=== PATIENT | female | born 1950 | race Caucasian/White ===

== ENCOUNTER → 2016-07-27 | Outpatient (CLI) | payer BC ==
[~2016-07-27] MED LIST: ASCA500 PO; ESZO1TAB18 PO; GLUCTAB7 PO; IBUP-1105 PO; IBUP600T44 PO; MAGNTAB4 PO; MULT-506 PO; OMEG10007 PO; OXYC-57 PO; VITACAP26 PO
[2016-07-27 10:52] LABS: URINE APPEARANCE CLEAR (CLEAR); URINE BILIRUBIN NEG (NEG); URINE COLOR YELLOW; URINE EPITHELIAL CELL AUTO 0-5 /lpf (0-5); URINE NITRITE NEG (NEG); URINE PH 7.5 (4.5-7.5); URINE SPECIFIC GRAVITY 1.012 (1.000-1.030); UROBILINOGEN NEG (NEG)
[2016-07-27 10:54] LABS: BASO % 0.7 %; BASO ABS # 0.03 K/uL (0-0.2); COMPLETE YES; EOS % 1.4 %; HEMATOCRIT 39.6 % (37-47); LYMPH % 38.7 %; LYMPH ABS # 1.62 K/uL (1.2-3.4); MEAN CORPUSCULAR HEMOGLOBIN 30.6 pg (25-34); MEAN CORPUSCULAR HGB CONC 34.3 g/dl (32-36); MEAN PLATELET VOLUME 11.5 fL (7.4-10.4); MONO % 12.4 %; NEUT % 46.8 %; PLATELET COUNT 180 K/uL (130-400); RED BLOOD COUNT 4.45 M/uL (4.2-5.4); WHITE BLOOD COUNT 4.19 K/uL (4.8-10.8)
[2016-07-27 10:58] LABS: MANUAL MICROSCOPIC REQUIRED? NO; REVIEW REQ? NO
[2016-07-27 11:19] LABS: CHOLESTEROL/HDL RATIO 1.6; THYROID STIMULATING HORMONE 2.28 uIu/ml (0.300-4.500)
== END | disposition home or self-care (01) ==
LOC: C.LAB1850 09:29
PROVIDERS: ATTEND Internal Medicine
DX: J45.909 Unspecified asthma, uncomplicated (principal)

== ENCOUNTER → 2016-09-06 | Outpatient (CLI) | payer BC ==
--- NOTE | 2016-09-06 15:15 | DIAGNOSTIC IMAGING REPORT ---
LUMBAR SPINE 5 VIEWS HISTORY: Pain LOW BACK PAIN COMPARISON: None. FINDINGS: There is no fracture. No subluxation. Moderate to significant degenerative disc change. This is most prominent at L5-S1 and L1-L2. No evidence for compression deformity. Mild scoliosis. IMPRESSION: Mild scoliosis. Degenerative disc change most prominent at L1-L2 and L5-S1 Electronically signed by: Zhen Parks M.D. 09/06/2016 3:13 PM Dictated Date/Time: 09/06/2016 3:12 PM
== END | disposition home or self-care (01) ==
LOC: C.RDSM 15:05
PROVIDERS: ATTEND Physician Assistant
DX: R52 Pain, unspecified (principal); M51.36 Other intervertebral disc degeneration, lumbar region; M51.37 Other intervertebral disc degeneration, lumbosacral region

== ENCOUNTER → 2016-10-03 | Outpatient (CLI) | payer BC ==
--- NOTE | 2016-10-03 13:32 | DIAGNOSTIC IMAGING REPORT ---
MRI LUMBAR SPINE W/O CONTRAST CLINICAL HISTORY: LOW BACK PAIN RIGHT LEG RADICULOPATHY. TECHNIQUE: Sagittal and axial T1, T2 and STIR images were obtained. COMPARISON STUDY: 09/06/2016 OBSERVATIONS: The vertebral bodies and posterior elements appear intact. There is no abnormal bony signal present to suggest a marrow replacement process. L1-2: There are discogenic endplate changes. There is a mild circumferential disc bulge. There is no significant spinal or foraminal stenosis. L2-3: No disc protrusions or extrusions. No evidence of spinal canal or neural foraminal compromise. L3-4: There is a circumferential disc bulge present. There is mild spinal stenosis. There is no significant foraminal narrowing. L4-5: There is a circumferential disc bulge. There is mild triangular spinal stenosis. There is no significant foraminal narrowing L5-S1: There is a disc bulge and tiny central disc protrusion. There is minimal deformity anterior thecal sac. There is no significant foraminal narrowing. The conus medullaris and cauda equina appear normal. IMPRESSION: Multilevel spondylitic changes. Mild spinal stenosis at the L3-4, and L4-5 levels. Tiny central disc protrusion at the L5-S1 level. Electronically signed by: Klever Steward M.D. 10/03/2016 1:30 PM Dictated Date/Time: 10/03/2016 1:26 PM
== END | disposition home or self-care (01) ==
LOC: C.MRI 12:35
PROVIDERS: ATTEND Physical Medicine & Rehabilitation
DX: M54.16 Radiculopathy, lumbar region (principal); M48.06 Spinal stenosis, lumbar region

== ENCOUNTER → 2016-11-14 | Day surgery (SDC) | payer BC ==
[2016-11-10 15:02] VITALS: Ht 160 cm; Wt 47.3 kg
[~2016-11-14] VITALS: Ht 160 cm; Wt 47.3 kg
[~2016-11-14] MED LIST changes: -IBUP600T44 PO; +IOPAMIDOL INJ 61% 15 ML VIAL ONE; +LIDOCAINE HCL 1% MPF 5 ML VIAL ONE; -MAGNTAB4 PO; -OMEG10007 PO; -OXYC-57 PO; +SODIUM CHLORIDE 0.9% INJ 10 ML VIAL ONE; -VITACAP26 PO
--- NOTE | 2016-11-14 14:43 | History & Physical Bridge - SC ---
H&P Re-Evaluation Bridge Note: I have examined the patient, reviewed the History & Physical and in the interval since the performance of the History & Physical I have noted the following changes of clinical significance: No changes noted
[2016-11-14 15:14] VITALS: TEMP 36.6
--- NOTE | 2016-11-14 15:17 | Discharge Instructions ---
Discharge Instructions Date of Service November 14, 2016. Visit Reason for Visit: Lumbar Radiculopathy Discharge Discharge Diagnosis / Problem: right leg pain Discharge Goals Goal(s): Decrease discomfort, Improve function Medications Stopped Medications Name(s): Ibuprofen stopped 11/10. Activity Recommendations Activity Limitations: resume your previous activity Anesthesia . Post Anesthesia Instructions: If you have had General Anesthesia or IV Sedation: * Do not drive today. * Resume driving when surgeon permits. * Do not make important decisions or sign legal documents today. * Call surgeon for: 1. Temperature elevations greater than 101 degrees F. 2. Uncontrollable pain. 3. Excessive bleeding. 4. Persistent nausea and vomiting. 5. Medication intolerance (nausea, vomiting or rash). * For nausea and vomiting use only clear liquids such as: tea, soda, bouillon until nausea subsides, then gradually increase diet as tolerated. * If you have any concerns or questions, call your surgeon's office. If physician is unavailable and it is an emergency, call 911 or go to the nearest emergency room. . Diet Recommendations Recommended Home Diet: resume previous diet Procedures Procedures Performed: Lumbar Epidural Steroid Injection Pending Studies Studies pending at discharge: no Medical Emergencies . Who to Call and When: Medical Emergencies: If at any time you feel your situation is an emergency, please call 911 immediately. . Non-Emergent Contact Non-Emergency issues call your: Specialist . . "Provider Documentation" section prepared by Cole Florez. .
[2016-11-14 15:23] VITALS: BP 121/74; PULSE 69; O2SAT 100
--- NOTE | 2016-11-14 15:48 | OPERATIVE REPORT ---
DATE OF OPERATION: 11/14/2016 PREOPERATIVE DIAGNOSIS: L4-L5 foraminal stenosis with a right L5 radiculopathy. POSTOPERATIVE DIAGNOSIS: Same. PROCEDURE: Right paramedian L5-S1 intralaminar epidural steroid injection under fluoroscopic guidance. INDICATIONS: The patient is a 66-year-old white female who presents today for an epidural injection following an MRI imaging of her lower lumbar spine, which revealed severe foraminal narrowing at L5-S1 related to posterior disk bulge and posterior element hypertrophy. She has not responded to conservative measures and presents today for an epidural injection. PHYSICAL EXAMINATION: Pleasant female seated comfortably. She has some mild limitations with forward flexion. No issues with extension. She had normal lower extremity strength and sensation with negative seated straight leg raises. CONSENT: Verbal and written consent was obtained from the patient. Risks and benefits were reviewed. Risks include, but are not limited to epidural abscess, epidural hematoma, allergic reaction, and dural puncture. The patient wishes to proceed. DESCRIPTION OF PROCEDURE: The patient was taken back to the special procedures room of [facility]. She was maintained in a prone position. Backside was cleansed with Betadine x3 and a dry sterile dressing was applied. Fluoroscope was used to identify the L5-S1 intralaminar space. Overlying skin on the right side was anesthetized with 4 mL of lidocaine 1% with a 25-gauge 1-1/2-inch needle. A 22-gauge 3-1/2-inch Tuohy needle was then directed down towards the intralaminar space. It was advanced under lateral fluoroscopic guidance and loss of resistance was noted at a depth of 5 cm. Isovue-300 contrast 1 mL was injected, in which demonstrated epidural uptake pattern, which was confirmed with both AP and lateral views. She then underwent injection after negative aspiration of 40 mg of Depo-Medrol and 4 mL of preservative free sodium chloride. Injection reproduced a transient radicular sensation down the right leg. DISPOSITION: 1. The patient was taken out into the discharge recovery area, where she will be discharged home once discharge criteria have been met. 2. Follow up in the [facility] office in 2-4 weeks. I attest to the content of the Intraoperative Record and any orders documented therein. Any exceptio ns are noted below.
== END | disposition home or self-care (01) ==
LOC: X.SURG 13:30
PROVIDERS: ATTEND Physical Medicine & Rehabilitation
DX: M48.06 Spinal stenosis, lumbar region (principal); M54.16 Radiculopathy, lumbar region

== ENCOUNTER → 2017-05-28 | Outpatient (CLI) | payer BC ==
[~2017-05-28] MED LIST changes: -IOPAMIDOL INJ 61% 15 ML VIAL ONE; -LIDOCAINE HCL 1% MPF 5 ML VIAL ONE; -SODIUM CHLORIDE 0.9% INJ 10 ML VIAL ONE
[2017-05-28 17:04] LABS: BLOOD UREA NITROGEN 11 mg/dl (7-18); BUN/CREATININE RATIO 13.9 (10-20); CALCIUM 9.3 mg/dl (8.5-10.1); CARBON DIOXIDE 28 mmol/L (21-32); CHLORIDE 103 mmol/L (98-107); CREATININE 0.77 mg/dl (0.60-1.20); GLUCOSE 83 mg/dl (70-99); POTASSIUM 4.3 mmol/L (3.5-5.1); SODIUM 136 mmol/L (136-145)
== END | disposition home or self-care (01) ==
LOC: C.LAB1850 16:03
PROVIDERS: ATTEND Physician Assistant
DX: R53.83 Other fatigue (principal)

== ENCOUNTER → 2017-08-27 | Outpatient (CLI) | payer OTHER | END | disposition home or self-care (01) | LOC: C.MAMM 15:11 | PROVIDERS: ATTEND Internal Medicine | DX: M85.851 Other specified disorders of bone density and structure, right thigh (principal); M85.852 Other specified disorders of bone density and structure, left thigh; F41.8 Other specified anxiety disorders ==

== ENCOUNTER 2021-04-11 07:36 | Observation (INO) ==
--- NOTE | 2021-04-05 13:40 | Anesthesiology Consultation ---
Date of Service April 05, 2021 Assessment & Plan (1) Encounter for pre-operative examination: Chart Review Chart Review: Acceptable Risk for Surgery (pending preop Covid testing results ) and Patient NOT seen in Pre Admission Testing Per nursing assessment 04/05/21, patient traveled to [place] via car- vacation with daughter and son- returned home 03/26/21. No known Covid positive contacts or Covid related symptoms. No known Covid infection in the past 90 days. Pt is vaccinated for Covid. Preop Covid testing scheduled 04/07/21= will await results. History Surgery Operation Date: 04/11/21 09:55 Proposed Procedures p Right Breast Lumpectomy with Localization Using Shelbie Dispatcher Service Or Work Marker or Needle with Right [place] Lymph Node Biopsy - Americo Hu MD, FACS Height/Weight Height: 5 ft 3 in Weight: 46.72 kg Allergies Allergy/AdvReac Type Severity Reaction Status Date / Time bee venom protein (honey bee) Allergy Severe Anaphylaxis Verified 04/05/21 11:58 hornet venom Allergy Intermediate SWELLING, Verified 04/05/21 11:58 REDNESS sulfamethoxazole AdvReac Intermediate yeast Verified 04/05/21 11:58 [From Bactrim] infection trimethoprim [From Bactrim] AdvReac Intermediate yeast Verified 04/05/21 11:58 infection nickel AdvReac Mild "sensitive Verified 04/05/21 11:59 to metal" Medications Home Medications Medication Instructions Recorded Confirmed Last Taken multivitamin (Daily Multi-Vitamin) 1 tab PO DAILY 01/15/19 04/05/21 Unknown ascorbic acid (vitamin C) 500 mg 500 mg PO 2XWK cap 07/28/19 04/05/21 Unknown capsule epinephrine 0.3 mg/0.3 mL 0.3 mg IM ONCE PRN #2 ea 12/11/19 04/05/21 Unknown injection, auto-injector acetaminophen 650 mg 650 mg PO UD PRN tab 11/25/20 04/05/21 Unknown tablet,extended release (Tylenol Arthritis Pain) ibuprofen 200 mg capsule 400 mg PO BID PRN cap 11/25/20 04/05/21 Unknown eszopiclone 2 mg tablet 2 mg PO HS PRN #30 tab 12/28/20 04/05/21 Unknown cyclobenzaprine 5 mg tablet 5 mg PO TID PRN #30 tab 03/30/21 04/05/21 Unknown Past Medical History Medical History Arthritis Breast cancer RT Degenerative disc disease Hx of basal cell carcinoma Irritable bowel syndrome Ocular migraine Past Family History Family History Mother Colon cancer Aunt Colon cancer Other No family history of adverse response to anesthesia Denies family history of Ovarian cancer Breast cancer Past Surgical History Surgical History History of appendectomy History of breast biopsy RT/LEFT History of colonoscopy History of hysterectomy History of surgical procedure on eye proper using laser LEFT History of tooth extraction Social History Smoking Status: Never smoker Hx Alcohol Use: Yes Alcohol type: beer alcohol intake frequency: holidays/special occasions only Hx Substance Use: No Lab Results Anesthesia Preop Results Results Anesthesia Widget: WBC 5.08 K/uL (4.8-10.8) 03/17/21 Hgb 12.8 g/dL (12.0-16.0) 03/17/21 Hct 37.6 % (37-47) 03/17/21 Plt 222 K/uL (130-400) 03/17/21 Na 137 mmol/L (136-145) 03/17/21 K 4.0 mmol/L (3.5-5.1) 03/17/21 Cl 105 mmol/L (98-107) 03/17/21 CO2 28 mmol/L (21-32) 03/17/21 BUN 14 mg/dl (7-18) 03/17/21 Creat 0.74 mg/dl (0.6-1.2) 03/17/21 Glucose Level 76 mg/dl (70-99) 03/17/21 Testing Electrocardiogram Date: 03/17/21 Findings: + NSR @ (71bpm) Incomplete RBBB. When compared to EKG from Jun- T wave inversion now evident in anterior leads (Reviewed with Dr Connolly- NATALYA noted in V3, no physical limitations per nursing assessment- pt can proceed as scheduled)
[~2021-04-11 07:36] MED LIST changes: -ASCA500 PO; -ESZO1TAB18 PO; -GLUCTAB7 PO; -IBUP-1105 PO; +LR 15ML/HR IV SCH; -MULT-506 PO; +ceFAZolin 2000MG 2,000 MG/15 ML SYR IV SCH
[2021-04-11] MEDS ORDERED: fentaNYL citrate 100 MCG/2 ML VIAL ONE ×2 (08:18→09:12)
[2021-04-11] MEDS ORDERED: LIDOCAINE 2% 2 ML VIAL/AMP(20MG/ML) INFIL ONE ×2 (08:18→09:15)
[2021-04-11] MEDS ORDERED: PROPOFOL IV EMULSION 10 MG/ML 20 ML VIAL IV ONE ×2 (08:18→09:15)
[2021-04-11] MEDS ORDERED: ONDANSETRON INJ 2 MG/ML 2 ML VIAL ONE ×2 (08:18→09:15)
[2021-04-11] MEDS ORDERED: DEXAMETHASONE SOD INJ 4 MG/ML VIAL ONE ×2 (08:18→09:15)
[2021-04-11] MEDS ORDERED: MIDAZOLAM HCL 1 MG/ML 2ML VIAL ONE ×2 (08:18→09:12)
--- NOTE | 2021-04-11 08:50 | History & Physical Bridge Note ---
Date of Service April 11, 2021 History & Physical Bridge Note I have examined the patient, reviewed the History & Physical and in the interval since the performance of the History & Physical I have noted the following changes of clinical significance: no changes noted
[2021-04-11] MEDS ORDERED: ATROPINE SULFATE 0.1 MG/ML 10ML SYR IV PRN (08:57)
[2021-04-11] MEDS ORDERED: ONDANSETRON INJ 2 MG/ML 2 ML VIAL IV PRN ×2 (08:57→11:13)
[2021-04-11] MEDS ORDERED: FLUMAZENIL 0.1 MG/1 ML 10 ML VIAL IV PRN (08:57)
[2021-04-11] MEDS ORDERED: ePHEDrine sulfate 50 MG/ML AMP IV PRN (08:57)
[2021-04-11] MEDS ORDERED: PROMETHAZINE HCL 12.5 MG in SODIUM CHLORIDE 0.9% 50 ML IV PRN ×2 (08:57→11:13)
[2021-04-11] MEDS ORDERED: NALOXONE HCL 0.4 MG/1 ML VIAL/CARP IV PRN (08:57)
[2021-04-11] MEDS ORDERED: LABETALOL HCL IV 5 MG/ML 20ML IV PRN (08:57)
[2021-04-11] MEDS ORDERED: METHYLENE BLUE 0.5% 10 ML VIAL ONE (09:17)
[2021-04-11] MEDS ORDERED: BUPIVACAINE 0.5 % 5 MG/1 ML MPF 30ML VIAL ONE (09:17)
[2021-04-11] MEDS ORDERED: ePHEDrine sulfate 50 MG/ML SYR ONE (10:15)
--- NOTE | 2021-04-11 11:12 | Post Operative Brief Note ---
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 Right Breast [place] Lymph Nodes x2 (placed in formalin per surgeon) B. Right Breast Lumpectomy (short silk=medial, long silk=lateral, skin=anterior/lateral, methylene blue=posterior)--FRESH C. Right Breast Posterior/Deep Tissue (silk=medial, methylene blue=new margin)--placed in formalin per surgeon D. Right Breast Medial/Inferior Tissue (silk=medial, methylene blue=new margin)--placed in formalin per surgeon
[2021-04-11] MEDS ORDERED: ACETAMINOPHEN 1,000 MG/100 ML VIAL IV ONE (11:13)
[2021-04-11] MEDS ORDERED: SODIUM CHLORIDE 0.9% 1000ML 1,000 ML IV SCH (11:15)
[2021-04-11] MEDS: fentaNYL citrate 100 MCG/2 ML VIAL IV PRN ×4 (11:56→12:14)
--- NOTE | 2021-04-11 12:21 | Anesthesiology Progress Note ---
Date of Service April 11, 2021 Anesthesia Post Procedure Vital Signs Vital Signs: Temp Pulse Pulse Resp BP Pulse Ox 04/11/21 12:10 77 16 134/72 99 04/11/21 12:00 74 16 127/72 98 04/11/21 11:50 72 14 133/67 98 04/11/21 11:40 79 16 128/74 99 04/11/21 11:30 71 14 125/65 99 04/11/21 11:20 68 14 125/62 100 04/11/21 11:14 96.8 F L 68 14 120/67 100 04/11/21 08:59 97.7 F 77 20 145/80 H 99 Pain Intensity Bilateral Neck: Pain Intensity: 3 Right Lateral Breast: Pain Intensity: 7 Transfer of Care Handoff Completed per policy Notes Mental Status: alert / awake / arousable and participated in evaluation Patient Amnestic to Procedure: Yes Nausea / Vomiting: adequately controlled Pain: adequately controlled Airway Patency, RR, SpO2: stable & adequate BP & HR: stable & adequate Hydration State: stable & adequate Anesthetic Complications: no major complications apparent and Pt Satisfied with anesthetic care
--- NOTE | 2021-04-11 12:31 | Operative Report (OR) ---
DATE OF OPERATION: 04/11/2021 NAME OF OPERATION: Right lumpectomy with sentinel lymph node biopsy. PREOPERATIVE DIAGNOSIS: Ductal carcinoma in situ of the right breast. POSTOPERATIVE DIAGNOSIS: Ductal carcinoma in situ of the right breast. STAFF SURGEON: Americo Hu MD. ENERGY MANAGER: Nurses. ANESTHESIA: General. DESCRIPTION OF PROCEDURE: The patient was brought in the operating room and placed on the operating table in supine position. Her right arm was extended onto an arm board. Her right axilla and right breast were prepped and draped in the usual fashion. The axilla was approached first. Using a Neopr obe, I was able to isolate 2 sentinel lymph nodes, which were sent permanently. I did place them int o the Faxitron to see if one of the lymph nodes had a clip from prior needle biopsy, but it did not. At this point, the breast was approached. Using 0.5% plain Marcaine, skin at all incisions were ane sthetized and then an elliptical incision made around the area where the ROXANNE COIL MACHINE OPERATOR was active, carry ing dissection down deep to the muscle. The right breast tissue was marked. Skin anterior/lateral, s hort silk suture medial, long silk suture lateral. Methylene blue, posterior margin down to the musc le. I took additional tissue posterior/deep with a silk suture medial. Methylene blue new margin. Additional medial/inferior tissue with a silk suture medial. Methylene blue new margin. I placed cl ips at the area of the previous tumor. The initial breast tissue was placed in a Faxitron. We had th e tissue we wanted, Dr. Baca did review it. At this point, both incisions were closed using 2-0 plain for the deep tissue, 4-0 nylon for the axilla reapproximating the skin and then the skin of the breast reapproximated using subcuticular 4-0 Monocryl with Steri-Strips. The patient was transferre d to recovery room in stable condition with dressings applied. Job ID: [id number]
[2021-04-11] MEDS ORDERED: HYDROmorphone INJ 0.5 MG/0.5 ML SYR ONE (12:51)
[2021-04-11] MEDS ORDERED: HYDROmorphone INJ 0.5 MG/0.5 ML SYR IV STA (12:51)
[2021-04-11] MEDS: oxyCODONE HCL IR 5 MG TAB (IMMEDIATE RELEASE) PO PRN ×2 (13:44→14:52)
--- NOTE | 2021-04-11 14:36 | Mammography Report ---
SPECIMEN RIGHT BREAST: 04/11/2021 CLINICAL HISTORY: 70-year old woman with biopsy-proven carcinoma in the 9:00 posterior right breast p resents at time of lumpectomy. Preoperative localization with Shelbie Crop Setting Out Machine Operator was performed 04/07/2021. COMPARISON: Comparison is made to exams dated: 04/07/2021 localization, 03/30/2021 mammogram, 2020 MRI biopsy, 03/23/2021 breast MRI, 02/24/2021 fine needle aspiration, and 02/24/2021 ultrasound biops [facility]. FINDINGS: Specimen radiography was performed of the right breast lumpectomy specimen. There is a rib bon-shaped biopsy marker, Shelbie Crop Setting Out Machine Operator reflector, focal area of architectural distortion and fine linea r and punctate calcifications centrally within the tissue specimen, compatible with successful preope rative localization and subsequent surgical excision. IMPRESSION: SPECIMEN Right breast lumpectomy specimen, as above. Anny Baca M.D. ay/:04/11/2021 10:49:29 Paper Feeder: OR Technologist, [facility]
[2021-04-11] MEDS ORDERED: IBUPROFEN 600 MG TAB PO ONE (14:49)
[2021-04-11] MEDS ORDERED: ESZOPICLONE 1 MG TAB PO PRN (16:00)
[2021-04-11] MEDS ORDERED: ACETAMINOPHEN 325 MG TAB PO PRN (16:00)
[2021-04-11] MEDS ORDERED: HYDROmorphone INJ 0.5 MG/0.5 ML SYR IV PRN ×2 (16:00)
[2021-04-11] MEDS ORDERED: HYDROCODONE/ACETAMOPHEN 5/325MG TAB PO PRN (16:00)
[2021-04-11] MEDS ORDERED: IBUPROFEN 600 MG TAB PO PRN (16:00)
[2021-04-12] MEDS: HYDROCODONE/ACETAMOPHEN 5/325MG TAB PO PRN ×2 (07:52→08:52)
--- NOTE | 2021-04-12 08:39 | Discharge Summary (DS) ---
DATE OF ADMISSION: 04/11/2021 DATE OF DISCHARGE: 04/12/2021 PRINCIPAL DIAGNOSIS: Ductal carcinoma in situ, right breast. PROCEDURE: The patient underwent lumpectomy with sentinel lymph node biopsy. HISTORY OF PRESENT ILLNESS: The patient is a 70-year-old female with a history of DCIS of the right breast. For definitive surgery, she was brought in the hospital on 04/11/2021 where she underwent [facility] lumpectomy with sentinel lymph node biopsy, which she tolerated very well. Postoperatively, she d id have significant pain requiring IV medication and felt that observation would be appropriate. She is ready for discharge today to be followed in the surgical clinic within one week, will also obtain followup with oncology and radiation oncology. Job ID: [id number]
--- NOTE | 2021-04-12 12:07 | Communication Note ---
Date of Service: April 12, 2021 Patient was discharged prior to patient assessment. Pt has a PMHx of asthma, IBS, nephrolithiasis, migraines, fibromyalgia, depression/anxiety and on minimal home medications. Chart was reviewed and labs acceptable and vital signs within normal limits. She was seen and evaluated by primary service and discharged home.
== END 2021-04-12 09:45 | disposition home or self-care (01) ==
LOC: 3E 07:36 → ASU 07:36